=== PATIENT | female | born 1975 | race Caucasian/White ===

== ENCOUNTER 2022-01-12 07:16 | Day surgery (SDC) | payer MEDICAID ==
[2022-01-11 13:48] LABS: HCG,QUAL RESULT NEGATIVE (NEGATIVE)
[~2022-01-12] VITALS: Ht 157.5 cm; Wt 119.7 kg
[2022-01-12] MEDS ORDERED: BENZOCAINE 20% 0.5mL UD SPRAY MM ONE (08:09)
[2022-01-12] MEDS ORDERED: MEPERIDINE 100 MG INJ. 100 MG/ML VIAL ONE (08:10)
[2022-01-12] MEDS: MIDAZOLAM HCL 5 MG/5 ML VIAL ONE ×3 (09:34→09:41)
[2022-01-12] MEDS ORDERED: SIMETHICONE 40 MG/0.6 ML ML ONE (09:37)
[2022-01-12 13:49] VITALS: BP_SYST 131
== END 2022-01-12 11:15 | disposition home or self-care (01) ==
LOC: SDS 07:16 → SMU 07:22 → SDS 11:15
PROVIDERS: ATTEND Internal Medicine
DX: Z12.11 Encounter for screening for malignant neoplasm of colon (principal); D12.3 Benign neoplasm of transverse colon; K57.30 Diverticulosis of large intestine without perforation or abscess without bleeding; K29.50 Unspecified chronic gastritis without bleeding; B96.81 Helicobacter pylori [H. pylori] as the cause of diseases classified elsewhere; K64.8 Other hemorrhoids; K21.9 Gastro-esophageal reflux disease without esophagitis; R19.8 Other specified symptoms and signs involving the digestive system and abdomen; I10 Essential (primary) hypertension; J45.909 Unspecified asthma, uncomplicated; E11.9 Type 2 diabetes mellitus without complications; Z87.891 Personal history of nicotine dependence; Z98.84 Bariatric surgery status; Z79.899 Other long term (current) drug therapy; Z20.822 Contact with and (suspected) exposure to COVID-19
CPT/HCPCS: 84703; 36415; 45380; 43239; 82962; 88305; 88312; 88313; 99152; 99153; U0003; G0378; J2250; J2175